=== PATIENT | female | born 1995 | race African-American/Black ===

== ENCOUNTER 2018-10-01 18:35 | Emergency (ER) | payer OTHER ==
[~2018-10-01] VITALS: Ht 149.9 cm; Wt 90.7 kg
[2018-10-01 18:35] VITALS: BP 111/70
[~2018-10-01 18:35] MED LIST: CHILDREN'S100 MG/59 PO; NEO-POLYMYXIN-H10 ML OTIC
[2018-10-01] MEDS ORDERED: CORTISPORIN OTI10 M2 OTIC (19:10)
== END 2018-10-01 19:22 | disposition home or self-care (01) ==
LOC: ER 18:35
DX: H60.92 Unspecified otitis externa, left ear (principal)